=== PATIENT | female | born 1985 | race Caucasian/White ===

== ENCOUNTER 2016-10-29 23:01 | Emergency (ER) | payer MEDICARE, MEDICAID ==
--- NOTE | 2016-10-30 07:20 | ER ---
ADMIT: 10/29/2016 RM/LOC: ER [facility] MR#: [id number] [address] [facility] [place], [place] [id number] IDALIA GOEL [address] [place] [address] Emergency Room Report SEX: F AGE: 31 : 1985 DATE: 10/30/2016 The patient is a 31-year-old female, seen by this physician yesterday for abdominal pain and headache. Recommended following up with Dr. Pritchett this week to discuss prednisone taper or discontinuation. She states since being discharged, she has had ongoing pain and headache, but no further diarrhea, has stopped her prednisone. Denies any fevers, chills, vomiting, or urinary symptoms. Exam remarkable for nontoxic afebrile female with quiet bowel sounds. Normal CBC, CMP, lipase, CRP, lactic, and hCG negative yesterday. UA and CT negative yesterday. The patient was given IV fluids, Zofran, Toradol, Dilaudid, and Protonix with relief of pain. Recommend continuing to stop the prednisone and follow up Dr. Pritchett this week. Raad Valenzuela MD/ [facility] JOB #: [id number] CC: Raad Valenzuela MD, Attending Physician Sheron Pritchett, Family Physician Sheron Pritchett
== END 2016-10-30 00:46 | disposition home or self-care (01) ==
LOC: ER 23:01
DX: K52.9 Noninfective gastroenteritis and colitis, unspecified (principal); Z88.1 Allergy status to other antibiotic agents